=== PATIENT | male | born 1990 | race Caucasian/White ===

== ENCOUNTER 2018-10-13 11:45 | Emergency (ER) | payer SELFPAY ==
--- NOTE | 2018-10-13 13:24 | EDM.PDOC ---
ED HPI GENERAL MEDICAL PROBLEM - General Chief Complaint: Skin Complaint Stated Complaint: RASH FROM PRIOR OPEN WOUND Time Seen by Provider: 10/13/18 11:57 Source of Information: Reports: Patient, Family History Limitations: Reports: No Limitations - History of Present Illness INITIAL COMMENTS - FREE TEXT/NARRATIVE: 27 yo M comes in for pain/traveling rash from previous injury to R hip s/p fall on ice/pliers Friday. He was seen in clinic on and was started on Keflex and Tramadol. He was starting to feel better and the wounds have been healing nicely when Friday he spiked a Fever. Today, his fever was 101.9F this AM and his has now noticed a rash around the wounds traveling up his back and arm. He denies any itchiness or other symptoms at this time except for pain. Fever has since decreased to 98.9 here. No drainage from the wounds. He did have his tetanus shot. Right Hip Pain Score (Numeric/FACES): 8 - Related Data Allergies Allergy/AdvReac Type Severity Reaction Status Date / Time No Known Allergies Allergy Verified 10/13/18 12:15 Home Meds: Home Meds Doxycycline [Vibramycin] 100 mg PO BID 14 Days #28 tab 10/13/18 [Rx] Saccharomyces Boulardii [Florastor] 250 mg PO BID #60 capsule 10/13/18 [Rx] cephALEXin [Keflex] 500 mg PO ASDIRECTED 10/13/18 [History] traMADol [Ultram] 50 mg PO ASDIRECTED 10/13/18 [History] Social & Family History - Tobacco Use Smoking Status *Q: Never Smoker Second Hand Smoke Exposure: No - Caffeine Use Caffeine Use: Reports: Coffee - Recreational Drug Use Recreational Drug Use: No ED ROS GENERAL - Review of Systems Review Of Systems: ROS reveals no pertinent complaints other than HPI. ED EXAM, SKIN/RASH Exam: See Below Exam Limited By: No Limitations General Appearance: Alert, WD/WN, No Apparent Distress Eye Exam: Bilateral Eye: EOMI, PERRL Head: Atraumatic, Normocephalic Neck: Normal Inspection, Supple, Non-Tender, Full Range of Motion Respiratory/Chest: No Respiratory Distress, Lungs Clear, Normal Breath Sounds, No Accessory Muscle Use, Chest Non-Tender Cardiovascular: Normal Peripheral Pulses, Regular Rate, Rhythm, No Edema, No Gallop, No JVD, No Murmur, No Rub Peripheral Pulses: 3+: Posterior Tibial (L), Posterior Tibial (R), Dorsalis Pedis (L), Dorsalis Pedis (R) GI/Abdominal: Normal Bowel Sounds, Soft, Non-Tender, No Organomegaly, No Distention, No Abnormal Bruit, No Mass Extremities: Normal Inspection, Normal Range of Motion, Non-Tender, No Pedal Edema, Normal Capillary Refill Psychiatric: Normal Affect, Normal Mood Skin: Warm, Dry, Rash (petichae-like rash extended from R hip wound to the back and upper R arm), Wound/Incision (2 healed 1 cm wounds on R hip w/ slight erythema, no drainage) Associated features: Warmth. No: Swelling, Weeping Lymphatic: No Adenopathy Course - Vital Signs Last Recorded V/S: Last Vital Signs Temp 98.9 F 10/13/18 12:11 Pulse 90 10/13/18 12:11 Resp 16 10/13/18 12:11 BP 142/92 H 10/13/18 12:11 Pulse Ox 95 10/13/18 12:11 Departure - Departure Time of Disposition: 13:30 Disposition: Home, Self-Care 01 Condition: Good Clinical Impression: Drug-induced purpura - Discharge Information *PRESCRIPTION DRUG MONITORING PROGRAM REVIEWED*: Not Applicable *COPY OF PRESCRIPTION DRUG MONITORING REPORT IN PATIENT VICTOR MANUEL: Not Applicable Prescriptions: Doxycycline [Vibramycin] 100 mg PO BID 14 Days #28 tab Saccharomyces Boulardii [Florastor] 250 mg PO BID #60 capsule Instructions: Drug Allergy, [id number]-Glhy Referrals: PCP,None [Primary Care Provider] - Additional Instructions: You were seen in the ED today for worsening of your wound w/ rash and fever. It was found that you might have a rash as a reaction to the antibiotic/pain medication you were recently taking. Please discontinue these medications. Due to your increased fever, there is a concern that the antibiotic Keflex you have been taking is not adequately covering the infection, so you will be started on MRSA coverage (methicillin-resistant staph aureus) with Doxycycline 100mg twice per day x 14 days. Will also prescribe a probiotic, Florastor, to help prevent antibiotic related diarrhea. Recommend Motrin or other [id number] pain medication for continued pain/inflammation. Also recommend [id number] lotion for the rash. Recommend f/u with your Primary care provider. Please return to ED if new or worsening symptoms.
== END 2018-10-13 13:55 | disposition home or self-care (01) ==
LOC: JD.ED 11:45
DX: D69.2 Other nonthrombocytopenic purpura (principal); T50.905A Adverse effect of unspecified drugs, medicaments and biological substances, initial encounter; Z79.899 Other long term (current) drug therapy
CPT/HCPCS: 99282; 99283